=== PATIENT | female | born 1960 | race Caucasian/White ===

== ENCOUNTER 2020-06-21 11:09 | Emergency (ER) | payer OTHER, SELFPAY ==
[2020-06-21 11:42] VITALS: BP 131/80; PULSE 98; RESP 18; TEMP 36.3; O2SAT 99; BMI 26.3
[2020-06-21 11:56] LABS: Appearance Urine UA CLEAR; Bilirubin Urine UA NEGATIVE (NEGATIVE); Color Urine UA YELLOW; Glucose Urine UA NEGATIVE (Negative); Ketones Urine UA NEGATIVE (NEGATIVE); Leukocyte Esterase Urine UA 2+ (NEGATIVE); Nitrite Urine UA NEGATIVE (Negative); Occult Blood Urine UA 1+ (Negative); Protein Urine UA NEGATIVE (Negative); Urobilinogen Urine UA 0.2 E.U./dL (0.2)
[2020-06-21 12:00] LABS: pH Urine UA 7.5 (4.5-8.0)
[2020-06-21 12:03] LABS: Bacteria Urine Occasional (0-1); Culture Indicated Urine Specimen Cultured; RBC Urine 1-5/HPF (0-5/HPF); WBC Urine 0-1/HPF (0-5/HPF)
[2020-06-21] MEDS: cephALEXin 250 MG CAPSULE 500 MG PO (15:26)
[2020-06-21 15:34] VITALS: BP 118/93; PULSE 99; RESP 12; O2SAT 97
--- NOTE | 2020-06-22 00:18 | ED_ITS ---
HPI - Female Genitourinary <JUANCHO Toussaint - Last Filed: 06/22/20 00:31> General Chief complaint: Urogenital-Female Stated complaint: Think she has a UTI Time Seen by Provider: 06/21/20 14:57 Source: patient Mode of arrival: Family Vehicle Limitations: no limitations History of Present Illness HPI Narrative: This is a 59-year-old female, former smoker, who presents to ED with urinary urgency, bladder spasm, dysuria, and urinary frequency for last 2 days. Patient reports she has been having frequent UTI and she was treated the last time with antibiotic medication Bactrim DS November this year. Patient denies fever, chills, nausea or vomiting. Patient denies hematuria or flank pain. Patient had history of kidney stone many years ago but does not feel like this. Patient has been taking increasing water and cranberry juice with [id number] azo or when symptoms started. 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 Related Data Previous Rx's Medication Instructions Recorded cephalexin [Keflex] 500 mg PO Q6H 5 Days #20 cap 06/21/20 Allergies Allergy/AdvReac Type Severity Reaction Status Date / Time Penicillins Allergy Hives Verified 06/21/20 11:46 Review of Systems <JUANCHO Toussaint - Last Filed: 06/22/20 00:31> Review of Systems Narrative: General: Denies fever, chills, fatigue, malaise, sweats. HEENT: Denies sinus pain, ear pain, sore throat, difficulty swallowing, dizziness. Respiratory: Denies dyspnea, cough, wheezing, hemoptysis, sputum. Cardiovascular: Denies chest pain, palpitations, orthopnea, edema. Gastrointestinal: Denies nausea, vomiting, abdominal pain, diarrhea, constipation, melena. : See HPI Musculoskeletal: Denies weakness, joint pain or bony pain. Skin: Denies rash, skin lesions, or other. Neurologic: Denies weakness, headache, numbness, change in speech, confusion, seizures, incoordination. Psychiatric: No concerning psychosocial issues. 12-point review of systems is negative except for those stated above. Patient History <JUANCHO Toussaint - Last Filed: 06/22/20 00:31> Medical History Breast cancer (Acute) Hyperlipidemia (Acute) Hypertension (Acute) Type 2 diabetes mellitus (Acute) Surgical History (Updated 06/22/20 @ 00:31 by JUANCHO Toussaint) History of hysterectomy (Acute) Smoking Status: Never smoker alcohol intake frequency: a few times a month Substance Use Type: marijuana Exam <JUANCHO Toussaint - Last Filed: 06/22/20 00:31> Narrative Exam Narrative: GEN: Alert, oriented x 3, well appearing and nourished, and in no acute distress. Head: Normal cephalic, atraumatic. No scalp or temporal tenderness, palpable mass or rash. EYES: Pupils are equal, round, and reactive to light and accommodation. Extraocular muscles are intact bilaterally. There is no subconjunctival hemorrhage, exudate and sclera non-icteric. ENT: Hearing grossly intact. Airway patent. Neck: Trachea in midline. No JVD, non-tender without lymphadenopathy. No masses or thyroid megaly. Supple, non-tender and no meningeal signs. CARDIAC: Normal regular rate and rhythm without murmurs, gallops, or rubs. No chest wall tenderness. No peripheral edema, cyanosis or pallor. Capillary refill is less than 2 seconds. RESPIRATORY: Lungs are clear to auscultate bilaterally. No cough, wheezes, rales, or rhonchi. No stridor, respiratory distress, increase work of breathing, or accessary muscle used. ABD: Abdomen soft, nontender and non-distended. No guarding or rebound tenderness to palpate. Bowel sounds are normal in all 4 quadrants. There is no palpable masses or organomegaly. EXT: Full painless ROM of all extremities with no loss of sensation, strength, effusion or edema. SKIN: Warm, dry, normal color for patient. No erythema, lesions or rash over visible areas. BACK: Nontender without deformity or crepitance. No flank tenderness. NEUROLOGICAL: Alert and oriented to place, time and person. Sensation and motor function intact bilaterally. No facial droops, dysphasia. PSYCHIATRIC: Good judgement and reason, without hallucinations, abnormal affect or abnormal behaviors during the examination. Patient is not suicidal. Initial Vital Signs Initial Vital Signs: Vital Signs Temperature 97.3 F L 06/21/20 11:42 Pulse Rate 98 H 08/21/20 11:42 Respiratory Rate 18 06/21/20 11:42 Blood Pressure 131/80 06/21/20 11:42 Pulse Oximetry 99 06/21/20 11:42 <Rebecca Davis DO - Last Filed: 06/22/20 07:14> Initial Vital Signs Initial Vital Signs: Vital Signs Temperature 97.3 F L 06/21/20 11:42 Pulse Rate 98 H 06/21/20 11:42 Respiratory Rate 18 06/21/20 11:42 Blood Pressure 131/80 06/21/20 11:42 Pulse Oximetry 99 06/21/20 11:42 Scores <JUANCHO Toussaint - Last Filed: 06/22/20 00:31> GCS James coma scale eye opening: Spontaneous James coma scale verbal response: Orientated James coma scale motor response: Obey commands James coma scale total score: 15 qSOFA Altered Mental Status (GCS <15): No Respiratory rate greater than/equal to 22: No Systolic blood pressure less than or equal to 100: No qSOFA Total: 0 0-1 Not High Risk 1-3 High risk Course <JUANCHO Toussaint - Last Filed: 06/22/20 00:31> Orders Ordered: Discontinued Medications Cephalexin HCl (Keflex) 500 mg PO NOW ONE Stop: 06/21/20 15:10 Last Admin: 06/21/20 15:26 Dose: 500 mg Documented by: SEBLE <Rebecca Davis DO - Last Filed: 06/22/20 07:14> Orders Ordered: Discontinued Medications Cephalexin HCl (Keflex) 500 mg PO NOW ONE Stop: 06/21/20 15:10 Last Admin: 06/21/20 15:26 Dose: 500 mg Documented by: SEBLE MDM - Female Genitourinary <JUANCHO Toussaint - Last Filed: 06/22/20 00:31> Differential Diagnosis Differential diagnosis: Likely urinary tract infection and other (Kidney stone, dysuria, vaginal atrophy) Medical Records Attestation: I reviewed the patient's medical records. Lab Data Attestation: I reviewed the patient's lab results. Labs: Lab Results 06/21/20 Range/Units 11:54 Urine Color Yellow Urine Appearance Clear Urine pH 7.5 (4.5-8.0) Ur Specific Grants 1.010 (1.000-1.035) Urine Protein Negative (Negative) Urine Glucose (UA) Negative (Negative) g/dL Urine Ketones Negative (NEGATIVE) Urine Occult Blood 1+ H (Negative) Urine Nitrate Negative (Negative) Urine Bilirubin Negative (NEGATIVE) Urine Urobilinogen 0.2 (0.2) E.U./dL Ur Leukocyte Esterase 2+ H (NEGATIVE) Urine RBC 1-5/hpf (0-5/HPF) Urine WBC 0-1/hpf (0-5/HPF) Urine Bacteria Occasional (0-1) (None) Ur Culture Indicated? Specimen cultured MDM Narrative Medical decision making narrative: This is a 59-year-old female who has frequent UTI and last treatment was done about 6 months ago with Bactrim DS presents to ED with chief complain of her typical urinary symptoms. Endorses no constitutional symptoms. There is no CVA tenderness. Patient is afebrile with within normal vital signs. UA indicates urine leukoesterase, urine WBC of 0-1 and occasional bacteria. No urine nitrate was appreciated. Urine cultures pending. Given patient has typical urinary symptoms and small amount of urine bacteria and WBC, will treat patient with 7 day course of antibiotic medication Keflex. Patient may have vaginal atrophy and dysuria and advised to speak with her primary care doctor whether topical estrogen could be considered with patient's given history of breast cancer. Return precautions were discussed with patient and patient verbalized understanding and agreement with the treatment plan. Informed patient that she will receive a phone call if antibiotic medication changes required. <Rebecca Davis, DO - Last Filed: 06/22/20 07:14> Lab Data Labs: Lab Results 06/21/20 Range/Units 11:54 Urine Color Yellow Urine Appearance Clear Urine pH 7.5 (4.5-8.0) Ur Specific Grants 1.010 (1.000-1.035) Urine Protein Negative (Negative) Urine Glucose (UA) Negative (Negative) g/dL Urine Ketones Negative (NEGATIVE) Urine Occult Blood 1+ H (Negative) Urine Nitrate Negative (Negative) Urine Bilirubin Negative (NEGATIVE) Urine Urobilinogen 0.2 (0.2) E.U./dL Ur Leukocyte Esterase 2+ H (NEGATIVE) Urine RBC 1-5/hpf (0-5/HPF) Urine WBC 0-1/hpf (0-5/HPF) Urine Bacteria Occasional (0-1) (None) Ur Culture Indicated? Specimen cultured Discharge Plan Departure Patient Disposition: Home Clinical Impression: Urinary tract infection Qualifiers: Urinary tract infection type: site unspecified Hematuria presence: with hematuria Qualified Code(s): N39.0 - Urinary tract infection, site not specified Discharge Date/Time: 06/21/20 15:37 Instructions: DI for Urinary Tract Infection (UTI) Activity Restrictions/Additional Instructions: You have been diagnosed with [urinary tract infection. Urine culture is pending and you will receive a phone call if requires different antibiotic medications.]. What to do: *Take your medications as directed. Please take Keflex 4 times a day next 5 days. Keflex has been transmitted to [facility] in [facility]. *Follow up with your primary care provider in 2-3 days, call for an appointment. Let them know you were seen in the ED and that we asked you to be seen in follow up. *Return to ED if you have any new, worsening, or concerning symptoms, such as [worsening pain, chest pain, breathing difficulty, unable to tolerate fluids, back pain, chills and fever or any acute concerns]. Prescriptions: New cephalexin [Keflex] 500 mg capsule 500 mg PO Q6H 5 Days Qty: 20 RF: 0 Referrals: Prince Bernal MD [Primary Care Provider] - <Rebecca Davis DO - Last Filed: 06/22/20 07:14> Cosign ED Attending Abelino Attestation: I was immediately available in the department for consultation. Documentation has been reviewed. I agree with assessment and plan.
== END 2020-06-21 15:37 | disposition home or self-care (01) ==
PROVIDERS: Emergency Medicine; Emergency Provider Nurse Practitioner Family; PCP Family Medicine; Referring Provider Family Medicine
DX: N39.0 Urinary tract infection, site not specified (principal)
CPT/HCPCS: 81001; 87077; 87086; 87147; 99283